=== PATIENT | female | born 1995 ===

== ENCOUNTER → 2020-11-13 | Outpatient (CLI) | payer OTHER ==
[~2020-11-13] MED LIST: FERSU90EL PO; IBUP800 PO; Percocet 5-3251 EACH PO
== END ==
LOC: LAB 15:34 → LAB SHORT 15:34
DX: N89.8 Other specified noninflammatory disorders of vagina (principal); R30.0 Dysuria
CPT/HCPCS: 87070; 87086; 87205

== ENCOUNTER 2024-03-01 21:06 | Emergency (ER) | payer SELFPAY ==
[~2024-03-01] VITALS: Ht 170.2 cm; Wt 99.8 kg
[2024-03-01] MEDS ORDERED: Ondansetron HCl 2 MG / ML 2ML Vial IV PRN (21:45)
[2024-03-01 22:17] LABS: BASOPHILS ABSOLUTE AUTO 0.05 K/mm3 (0.00-0.23); BASOPHILS PERCENT AUTO 0 % (0-2); EOSINOPHILS ABSOLUTE AUTO 0.05 K/mm3 (0.00-0.68); EOSINOPHILS PERCENT AUTO 0 % (0-6); Hematocrit 42.3 % (33.0-51.0); Hemoglobin 14.2 g/dL (11.5-16.0); IMMATURE GRAN ABSOLUTE AUTO 0.07 K/mm3 (0.00-0.10); IMMATURE GRAN PERCENT AUTO 1 % (0-1); LYMPHOCYTES ABSOLUTE AUTO 2.39 K/mm3 (0.84-5.20); LYMPHOCYTES PERCENT AUTO 17 % (21-46); MONOCYTES ABSOLUTE AUTO 0.86 K/mm3 (0.16-1.47); MONOCYTES PERCENT AUTO 6 % (4-13); Mean Corpuscular HGB 31.2 pg (26.0-34.0); Mean Corpuscular HGB Conc 33.6 g/dL (31.5-36.5); Mean Corpuscular Volume 93 fL (80-100); Mean Platelet Volume 11.1 fL (9.1-12.4); NEUTROPHILS ABSOLUTE AUTO 11.03 K/mm3 (1.96-9.15); NEUTROPHILS PERCENT AUTO 76 % (41-73); Platelet Count 249 K/mm3 (150-400); RDW Standard Deviation 44.3 fL (35.1-46.3); Red Blood Cell Count 4.55 M/mm3 (3.80-5.20); White Blood Cell Count 14.45 K/mm3 (4.00-11.30)
[2024-03-01 22:47] LABS: Albumin, Blood 3.9 g/dL (3.4-5.0); Albumin/Globulin Ratio 0.8 (0.8-1.8); Bilirubin, Total 0.8 mg/dL (0.1-1.0); Bun/Creatinine Ratio 13.7 (12.0-20.0); Calcium, Blood 9.9 mg/dL (8.5-10.1); Creatinine, Blood 0.66 mg/dL (0.40-1.00); Globulin, Blood 4.6 g/dL (2.2-4.0); Potassium, Blood 4.2 mmol/L (3.5-5.5); Total Protein, Blood 8.5 g/dL (6.4-8.2)
[2024-03-01 23:12] LABS: Source, Urine Clean Catch
[2024-03-01 23:14] LABS: Bilirubin, Urine Neg (Neg); Blood, Urine 2+ (Neg); Glucose Qualitative, Urine Neg (Neg); Ketones, Urine Neg (Neg); Leukocyte Esterase, Urine 3+ (Neg); Nitrite, Urine Neg (Neg); Protein, Urine 2+ (Neg); Urobilinogen, Urine NORM (Normal)
[2024-03-01 23:37] LABS: Appearance, Urine Cloudy (Clear); Color, Urine Yellow (P-Yellow)
[2024-03-01 23:38] LABS: Red Blood Cells, Urine 0-2 /hpf (0-2); Squamous Epithelial Cells Many /hpf (Few)
[2024-03-01 23:39] LABS: Bacteria Many /hpf; Mucus Light (0-Heavy)
[2024-03-02] MEDS ORDERED: CefTRIAXone Sodium 1,000 MG in NS 50 ML IV ONE (00:25)
[2024-03-02] MEDS ORDERED: NS 1,000 ML IV SCH (00:25)
[2024-03-02 01:22] VITALS: BP 133/88
[2024-03-02] MEDS ORDERED: CEPH500 PO (01:29)
== END 2024-03-02 02:15 | disposition home or self-care (01) ==
LOC: ER 21:06
PROVIDERS: Emergency Medicine
DX: N39.0 Urinary tract infection, site not specified (principal); R11.2 Nausea with vomiting, unspecified; Z87.891 Personal history of nicotine dependence
CPT/HCPCS: 80053; 81001; 81025; 83690; 85025; 87086; 96365; 96375; 99284-25; J0696; J2405; J7030

== ENCOUNTER 2024-03-06 15:59 | Inpatient (IN) | payer OTHER ==
[~2024-03-06] VITALS: Ht 170.2 cm; Wt 97.4 kg
[~2024-03-06 15:59] MED LIST changes: +CEPH500 PO
[2024-03-06 17:27] LABS: Source, Urine Clean Catch
[2024-03-06 17:35] LABS: BASOPHILS ABSOLUTE AUTO 0.06 K/mm3 (0.00-0.23); BASOPHILS PERCENT AUTO 1 % (0-2); EOSINOPHILS ABSOLUTE AUTO 0.28 K/mm3 (0.00-0.68); EOSINOPHILS PERCENT AUTO 3 % (0-6); Hemoglobin 11.8 g/dL (11.5-16.0); IMMATURE GRAN ABSOLUTE AUTO 0.03 K/mm3 (0.00-0.10); IMMATURE GRAN PERCENT AUTO 0 % (0-1); LYMPHOCYTES ABSOLUTE AUTO 1.91 K/mm3 (0.84-5.20); LYMPHOCYTES PERCENT AUTO 20 % (21-46); MONOCYTES ABSOLUTE AUTO 0.79 K/mm3 (0.16-1.47); MONOCYTES PERCENT AUTO 8 % (4-13); Mean Corpuscular HGB Conc 33.7 g/dL (31.5-36.5); Mean Corpuscular Volume 92 fL (80-100); Mean Platelet Volume 11.1 fL (9.1-12.4); NEUTROPHILS ABSOLUTE AUTO 6.68 K/mm3 (1.96-9.15); NEUTROPHILS PERCENT AUTO 69 % (41-73); Platelet Count 297 K/mm3 (150-400); RDW Coefficient Variation 12.8 % (11.7-14.2); RDW Standard Deviation 43.1 fL (35.1-46.3); Red Blood Cell Count 3.81 M/mm3 (3.80-5.20); White Blood Cell Count 9.75 K/mm3 (4.00-11.30)
[2024-03-06 17:35] LABS: Appearance, Urine Cloudy (Clear); Bilirubin, Urine Neg (Neg); Blood, Urine 2+ (Neg); Color, Urine Amber (P-Yellow); Glucose Qualitative, Urine Neg (Neg); Ketones, Urine 1+ (Neg); Leukocyte Esterase, Urine 3+ (Neg); Nitrite, Urine Neg (Neg); Protein, Urine 2+ (Neg); Specific Gravity, Urine 1.015 (1.003-1.022); Urobilinogen, Urine 3+ (Normal)
[2024-03-06 17:48] LABS: Albumin/Globulin Ratio 0.6 (0.8-1.8); Bilirubin, Total 0.5 mg/dL (0.1-1.0); Bun/Creatinine Ratio 11.3 (12.0-20.0); Calcium, Blood 9.6 mg/dL (8.5-10.1); Creatinine, Blood 0.62 mg/dL (0.40-1.00); Globulin, Blood 4.8 g/dL (2.2-4.0); Potassium, Blood 3.8 mmol/L (3.5-5.5); Total Protein, Blood 7.8 g/dL (6.4-8.2)
[2024-03-06 18:22] LABS: Amorphous Light (0-Heavy); Bacteria Many /hpf; Mucus Heavy (0-Heavy); Red Blood Cells, Urine 0-2 /hpf (0-2); Squamous Epithelial Cells Many /hpf (Few); White Blood Cells, Urine 50-100 /hpf (0-5)
[2024-03-06] MEDS ORDERED: Ketorolac Tromethamine 15mg Vial IV ONE (18:55)
[2024-03-06] MEDS ORDERED: Lactated Ringer's 1,000 ML IV ONE (19:00)
[2024-03-06] MEDS ORDERED: Ondansetron HCl 2 MG / ML 2ML Vial IV ONE (19:00)
[2024-03-06] MEDS ORDERED: Piperacillin/Tazobactam Sod 3.375 GM in NS 100 ML IV ONE (20:15)
[2024-03-06] MEDS ORDERED: NS 1,000 ML IV SCH (20:35)
[2024-03-06] MEDS ORDERED: Ondansetron HCl 2 MG / ML 2ML Vial IV PRN (20:35)
[2024-03-06] MEDS ORDERED: HYDROmorphone HCl/Pf 1MG SYR IV PRN (20:35)
[2024-03-06 21:32] VITALS: BP 126/65
[2024-03-07] VITALS (18 sets, daily range): BP systolic 110–145; BP diastolic 57–93
[2024-03-07] MEDS ORDERED: Ampicillin Sod/Sulbactam Sod 3 GM in NS 100 ML IV SCH (06:00)
--- NOTE | 2024-03-07 06:14 | NUR ---
SHIFT SUMMARY ADMITTED LAST NIGHT FOR ACUTE GRETA & UTI. PT REPORTS N/V FOR PAST 5 DAYS & LACK OF APPETITE. DENIES NAUSEA SINCE RECIEVING ZOFRAN IN ER & NO EMESIS NOTED. REPORTS 6/10 RUQ ABD PAIN, WORSE W/PALPATION & LOW BACK BURNING PAIN, MEDICATED 1x W/0.5 MG IV DILAUDID & PT REPORTS MILD RELIEF & ABLE TO REST, DENIES THE NEED FOR PAIN MEDS THIS AM. HAS BEEN NPO FOR POSSIBLE SURGERY. VSS. CALL LIGHT IN REACH & PT ABLE TO MAKE NEEDS KNOWN.
[2024-03-07] MEDS ORDERED: Lactated Ringer's 1,000 ML IV SCH ×2 (10:45→14:45)
--- NOTE | 2024-03-07 11:10 | NUR ---
PATIENT TO PREOP ON A GURNEY
[2024-03-07] MEDS ORDERED: Bupivacaine 0.5% HCl 5 MG/ML 30MLVIAL ONE (12:30)
[2024-03-07] MEDS ORDERED: propofoL 20 ML IV ONE (12:32)
[2024-03-07] MEDS ORDERED: Dexamethasone Sod Phos 10 MG/ML 1ML VIAL ONE (12:32)
[2024-03-07] MEDS ORDERED: Rocuronium Bromide 10 MG/ML 5ML Injection IV ONE ×2 (12:32→13:19)
[2024-03-07] MEDS ORDERED: Ondansetron HCl 2 MG / ML 2ML Vial ONE (12:32)
[2024-03-07] MEDS ORDERED: Ketorolac Tromethamine 30mg Vial ONE (12:32)
[2024-03-07] MEDS ORDERED: FentaNYL Citrate 50 MCG/ML 2 ML Injection ONE ×2 (12:32→15:00)
[2024-03-07] MEDS ORDERED: Albuterol 2.5 MG/3 ML VIAL INH PRN (13:00)
[2024-03-07] MEDS ORDERED: HYDROmorphone HCl/Pf 1MG SYR IV PRN (13:00)
[2024-03-07] MEDS ORDERED: FentaNYL Citrate 50 MCG/ML 2 ML Injection IV PRN (13:00)
[2024-03-07] MEDS ORDERED: Droperidol 5 mg/2 ml Vial IV PRN (13:00)
--- NOTE | 2024-03-07 13:07 | NUR ---
03/07/24 1307 Apurva Fowler PATIENT ON SCHEDULED ANTIBIOTICS, LAST DOSE GIVEN IN PREOP AT 1147. SEE EMAR. NO INTRAOPERATIVE ANTIBIOTICS ORDERED.
[2024-03-07] MEDS ORDERED: HYDROmorphone HCl/Pf 1MG SYR ONE (13:57)
[2024-03-07] MEDS ORDERED: Sugammadex Sodium 200 MG/2ML SDV (100 MG/ML) ONE (14:03)
[2024-03-07] MEDS ORDERED: HYDROcodone 5-APAP 325 TAB PO PRN (14:40)
[2024-03-07] MEDS ORDERED: FLU VACC TS2024-25(6MOS UP)/PF 45 MCG/0.5 ML SYRINGE IM SCH (14:45)
[2024-03-07] MEDS ORDERED: Ondansetron HCl 2 MG / ML 2ML Vial IV PRN (14:45)
--- NOTE | 2024-03-07 16:11 | NUR ---
POST OP NOTE/SHIFT SUMMARY PT ARRIVED BACK TO ROOM 210 FROM SURGERY. ALERT AND FOLLOWING COMMANDS, TRANSFERED TO BED W/ SLIDE SHEET. VSS. PT TOLERATING PO WATER, DENIES PAIN AND NAUSEA. PT HAS NOT BEEN OOB SINCE SURGERY BUT WAS AMBULATING TO THE BATHROOM INDEPENDENTLY PREOP. DRESSINGS C/D/I. CALL LIGHT IN REACH.
[2024-03-07] MEDS ORDERED: Docusate Sodium 100 MG Cap PO SCH (21:00)
[2024-03-08 00:19] VITALS: BP 123/70
[2024-03-08 04:04] VITALS: BP 119/71
[2024-03-08 04:23] LABS: BASOPHILS ABSOLUTE AUTO 0.03 K/mm3 (0.00-0.23); BASOPHILS PERCENT AUTO 0 % (0-2); EOSINOPHILS ABSOLUTE AUTO 0.02 K/mm3 (0.00-0.68); EOSINOPHILS PERCENT AUTO 0 % (0-6); Hematocrit 29.1 % (33.0-51.0); Hemoglobin 9.7 g/dL (11.5-16.0); IMMATURE GRAN ABSOLUTE AUTO 0.05 K/mm3 (0.00-0.10); IMMATURE GRAN PERCENT AUTO 1 % (0-1); LYMPHOCYTES ABSOLUTE AUTO 2.04 K/mm3 (0.84-5.20); LYMPHOCYTES PERCENT AUTO 19 % (21-46); MONOCYTES ABSOLUTE AUTO 0.72 K/mm3 (0.16-1.47); MONOCYTES PERCENT AUTO 7 % (4-13); Mean Corpuscular HGB 31.1 pg (26.0-34.0); Mean Corpuscular HGB Conc 33.3 g/dL (31.5-36.5); Mean Corpuscular Volume 93 fL (80-100); Mean Platelet Volume 10.7 fL (9.1-12.4); NEUTROPHILS ABSOLUTE AUTO 8.14 K/mm3 (1.96-9.15); NEUTROPHILS PERCENT AUTO 74 % (41-73); Platelet Count 274 K/mm3 (150-400); RDW Coefficient Variation 12.8 % (11.7-14.2); RDW Standard Deviation 43.4 fL (35.1-46.3); Red Blood Cell Count 3.12 M/mm3 (3.80-5.20)
--- NOTE | 2024-03-08 04:33 | NUR ---
SHIFT SUMMARY POD 1 LAP GRETA. NO ACUTE CHANGES OVERNIGHT. VSS. TOLERATING ORALS. AMBULATES IND, SBA R/T CORD MANAGEMENT. VOIDING, NO BM. LAP SITES x4 c STERI STRIPS C/D/I. IV FLUIDS/ABX INFUSING PER EMAR. PT REPORTS PAIN TOLERABLE, MEDICATED PER EMAR. ANTICIPATED D/C LATER TODAY. CALL LIGHT IN REACH, BED IN LOWEST POSITION, WILL REPORT TO DAY RN.
[2024-03-08 04:47] LABS: Albumin, Blood 2.4 g/dL (3.4-5.0); Albumin/Globulin Ratio 0.6 (0.8-1.8); Bilirubin, Total 0.3 mg/dL (0.1-1.0); Bun/Creatinine Ratio 6.7 (12.0-20.0); Calcium, Blood 8.5 mg/dL (8.5-10.1); Creatinine, Blood 0.59 mg/dL (0.40-1.00); Potassium, Blood 3.6 mmol/L (3.5-5.5); Total Protein, Blood 6.4 g/dL (6.4-8.2)
[2024-03-08 07:41] VITALS: BP 122/69
[2024-03-08] MEDS ORDERED: HYDR1TAB94 PO (13:27)
--- NOTE | 2024-03-08 15:35 | NUR ---
DISCHARGE PT PROVIDED WITH WRITTEN AND VERBAL DISCHARGE INSTRUCTIONS BY CHRISTELLE LAMB PRIOR TO DISCHARGE. PT DISCHARGED HOME AT 1445. PAIN MANAGED, VSS, PT TOLERATING PO, AMBULATING AND ABLE TO VOID PRIOR TO DISCHARGE.
[2024-03-09 11:49] LABS: HEPATITIS A ANTIBODY, IGM Negative (Negative); HEPATITIS B CORE ANTIBODY, IGM Negative (Negative); HEPATITIS B SURFACE ANTIGEN Negative (Negative); HEPATITIS C AB CIA INTERP Negative (Negative); HEPATITIS C ANTIBODY CIA INDEX 0.18 IV
== END 2024-03-08 14:45 | disposition home or self-care (01) | DRG 418 ==
LOC: ER 15:59 → SURS 20:36
PROVIDERS: Emergency Medicine; Physician Assistant; Surgery; ADMIT Surgery
PROC: 0FT44ZZ Resection of Gallbladder, Percutaneous Endoscopic Approach (ICD-10-PCS; principal; 2024-03-07 11:30)
DX: K80.12 Calculus of gallbladder with acute and chronic cholecystitis without obstruction (principal); K82.1 Hydrops of gallbladder; N39.0 Urinary tract infection, site not specified; K59.00 Constipation, unspecified; Z87.891 Personal history of nicotine dependence; Z79.899 Other long term (current) drug therapy; Z79.891 Long term (current) use of opiate analgesic
CPT/HCPCS: 36415; 74177; 80053; 80074; 81001; 81025; 83690; 85025; 87086; 88304; 96361; 96374-59; 96375; 99285-25; A9270; J0295; J1100; J1171; J1885; J2405; J2543; J2704; J3010; J7030; J7120; Q9967